=== PATIENT | male | born 1975 | race Two or more races ===

== ENCOUNTER 2021-12-03 01:50 | Emergency (ER) | payer OTHER ==
[2021-12-03 02:42] VITALS: BP 121/82; PULSE 69; RESP 20; TEMP 98.6; BMI 27.2
[2021-12-03] MEDS ORDERED: ACETAMINOPHEN 1000 MG/100 ML BAG IVPB ONE (02:46)
[2021-12-03] MEDS ORDERED: METOCLOPRAMIDE HCL INJECTION 10 MG/2 ML VIAL IVPB ONE (02:46)
[2021-12-03] MEDS ORDERED: SODIUM CHLORIDE 0.9% 500 ML INFUS.BAG IV ONE (02:46)
[2021-12-03] MEDS ORDERED: KETOROLAC TROMETHAMINE 30 MG/1 ML VIAL IVPUSH ONE (02:46)
[2021-12-03] MEDS ORDERED: ACETAMINOPHEN INJECTION 100 ML IVPB ONE (03:41)
[2021-12-03] MEDS ORDERED: METOCLOPRAMIDE HCL INJECTION 10 MG/2 ML VIAL ONE (03:41)
[2021-12-03] MEDS ORDERED: KETOROLAC TROMETHAMINE 30 MG/1 ML VIAL ONE (03:41)
== END 2021-12-03 05:28 | disposition home or self-care (01) ==
LOC: JER 01:50
PROC: 3E0333Z Introduction of Anti-inflammatory into Peripheral Vein, Percutaneous Approach (ICD-10-PCS; principal; 2021-12-03)
PROC: 3E0333Z Introduction of Anti-inflammatory into Peripheral Vein, Percutaneous Approach (ICD-10-PCS; 2021-12-03)
PROC: 3E033GC Introduction of Other Therapeutic Substance into Peripheral Vein, Percutaneous Approach (ICD-10-PCS; 2021-12-03)
DX: R51.9 Headache, unspecified (principal)
CPT/HCPCS: 99284-25

== ENCOUNTER 2022-05-02 09:58 | Observation (INO) | payer OTHER ==
[2022-05-02 10:21] VITALS: BMI 27.8
[2022-05-02 11:22] LABS: BASO % 0.9 % (0-2.0); HEMATOCRIT 45.8 % (35.4-49); HEMOGLOBIN 15.1 GM/dL (11.7-16.9); LYMPH % 45.4 % (8-40); MCH 29.7 pg (25.7-33.7); MCHC 32.9 g/dl (32.0-35.9); MEAN CELL VOLUME 90.3 fl (80-96); NEUT % 44.7 % (42.8-82.8); PLATELET COUNT 327 10^3/uL (134-434); RBC 5.08 M/mm3 (4.00-5.60); RDW 14.1 % (11.9-15.9); WHITE BLOOD COUNT 5.6 K/mm3 (4.0-10.0)
[2022-05-02 11:30] LABS: INR 1.04 (0.83-1.09); PROTHROMBIN TIME (PATIENT) 12.1 SEC (9.7-13.0)
[2022-05-02 11:32] LABS: ACTIVATED PTT 40.6 SECONDS (25.2-36.5)
[2022-05-02 11:47] LABS: CHLORIDE 105 mmol/L (98-107); SODIUM 137 mmol/L (136-145)
[2022-05-02 11:48] LABS: CALCIUM 9.1 mg/dL (8.5-10.1)
[2022-05-02 11:49] LABS: ANION GAP 4 MMOL/L (8-16); CO2 29 mmol/L (21-32)
[2022-05-02 11:50] LABS: BLOOD UREA NITROGEN 16.1 mg/dL (7-18); GLUCOSE,RANDOM 104 mg/dL (74-106)
[2022-05-02 11:52] LABS: CREATININE 0.9 mg/dL (0.55-1.3); SGOT/AST 26 U/L (15-37); SGPT/ALT 45 U/L (13-61)
[2022-05-02 11:54] LABS: CHOLESTEROL 182 mg/dL (50-200); TOT PROT 7.2 g/dl (6.4-8.2); TRIGLYCERIDES 164 mg/dL (0-150)
[2022-05-02 11:55] LABS: BILIRUBIN,TOTAL 0.3 mg/dL (0.2-1); LDL CHOLESTEROL (ONLY SJRH) 108 mg/dL (5-100)
[2022-05-02] MEDS ORDERED: ACETAMINOPHEN 1000 MG/100 ML BAG IVPB ONE (11:55)
[2022-05-02] MEDS ORDERED: SODIUM CHLORIDE 0.9% 500 ML INFUS.BAG IV ONE (11:55)
[2022-05-02] MEDS ORDERED: METOCLOPRAMIDE HCL INJECTION 10 MG/2 ML VIAL IVPUSH ONE (11:55)
[2022-05-02 11:56] LABS: ALK PHOS 100 U/L (45-117); HDL CHOLESTEROL 46 mg/dL (40-60)
[2022-05-02] MEDS ORDERED: METOCLOPRAMIDE HCL INJECTION 10 MG/2 ML VIAL ONE (12:28)
[2022-05-02] MEDS ORDERED: ACETAMINOPHEN INJECTION 100 ML IVPB ONE (12:29)
[2022-05-02] MEDS ORDERED: ASPIRIN 81 MG CHEWABLE TABLETS PO ONE (13:00)
[2022-05-02] MEDS ORDERED: ACETAMINOPHEN 325 MG TABLET (FP) PO PRN (13:35)
[2022-05-02] MEDS ORDERED: ASPIRIN 81 MG CHEWABLE TABLETS ONE (13:48)
[2022-05-02] MEDS ORDERED: TOPIRAMATE 25 MG TABLET PO SCH (22:00)
[2022-05-03 01:20] VITALS: RESP 18
[2022-05-03 08:58] VITALS: PULSE 73
[2022-05-03] MEDS ORDERED: ASPIRIN COATED 81 MG TABLET.EC PO SCH (10:00)
[2022-05-03 14:35] VITALS: BP 131/80; TEMP 98.6
[2022-05-03] MEDS ORDERED: ATORVASTATIN CA 20 MG TABLET (FP) PO SCH (22:00)
== END 2022-05-03 15:19 | disposition home or self-care (01) ==
LOC: JER 09:58 → JERBED 13:17 → UNDOADMOB 13:17 → INTOOBSV 13:17 → JERBED 13:33 → J4S 16:39
PROVIDERS: ADMIT Internal Medicine; ATTEND Internal Medicine
PROC: 3E033NZ Introduction of Analgesics, Hypnotics, Sedatives into Peripheral Vein, Percutaneous Approach (ICD-10-PCS; principal; 2022-05-02)
PROC: 3E033GC Introduction of Other Therapeutic Substance into Peripheral Vein, Percutaneous Approach (ICD-10-PCS; 2022-05-02)
PROC: 3E0337Z Introduction of Electrolytic and Water Balance Substance into Peripheral Vein, Percutaneous Approach (ICD-10-PCS; 2022-05-02)
DX: G43.909 Migraine, unspecified, not intractable, without status migrainosus (principal); R20.0 Anesthesia of skin; Z87.891 Personal history of nicotine dependence; E78.5 Hyperlipidemia, unspecified; R29.818 Other symptoms and signs involving the nervous system
CPT/HCPCS: 0241U-QW; 36415; 70450-TC; 70551-TC; 71045-TC-FY; 80053; 80061; 82550; 82553; 83036; 84484; 85025; 85610; 85730; 93005; 93010; 96361; 96374; 96375; 99285-25; G0378

== ENCOUNTER 2023-06-19 04:26 | Day surgery (SDC) | payer OTHER ==
[2023-06-16 12:14] VITALS: BMI 28.3
[2023-06-19 13:49] VITALS: RESP 18
[2023-06-19] MEDS ORDERED: FENTANYL CITRATE/PF 50 MCG/ML VIAL ONE (16:07)
[2023-06-19] MEDS ORDERED: MIDAZOLAM HCL 2 MG/2 ML SINGLE DOSE VIAL ONE ×2 (16:07→16:21)
[2023-06-19 19:25] VITALS: BP 130/77; PULSE 66; TEMP 98.2
== END 2023-06-19 17:45 | disposition home or self-care (01) ==
LOC: JASU-SURG 04:26
PROVIDERS: ATTEND Urology
PROC: 0TF3XZZ Fragmentation in Right Kidney Pelvis, External Approach (ICD-10-PCS; principal; 2023-06-19 15:30)
DX: N20.0 Calculus of kidney (principal)

== ENCOUNTER 2023-06-28 11:27 | Emergency (ER) | payer OTHER ==
[2023-06-28 11:44] VITALS: TEMP 97.4; BMI 28.4
[2023-06-28] MEDS ORDERED: KETOROLAC TROMETHAMINE 15 MG/ML VIAL ONE (12:42)
[2023-06-28] MEDS: SODIUM CHLORIDE 1,000 ML IV STA (12:50)
[2023-06-28] MEDS: KETOROLAC TROMETHAMINE 15 MG/ML VIAL IVPUSH ONE (12:51)
[2023-06-28 12:58] LABS: BASO % 0.7 % (0-2.0); EOS % 2.6 % (0-4.5); HEMATOCRIT 46.5 % (35.4-49); HEMOGLOBIN 14.9 GM/dL (11.7-16.9); LYMPH % 52.3 % (8-40); MCH 28.9 pg (25.7-33.7); MCHC 32.1 g/dl (32.0-35.9); MEAN PLT VOLUME 8.3 fl (7.5-11.1); MONO % 8.7 % (3.8-10.2); NEUT % 35.7 % (42.8-82.8); PLATELET COUNT 325 10^3/uL (134-434); RBC 5.17 M/mm3 (4.00-5.60); RDW 14.4 % (11.9-15.9)
[2023-06-28 13:13] LABS: POTASSIUM 4.2 mmol/L (3.5-5.1)
[2023-06-28 13:15] LABS: BLOOD UREA NITROGEN 11.2 mg/dL (7-18); CALCIUM 8.8 mg/dL (8.5-10.1)
[2023-06-28 13:19] LABS: CREATININE 1.1 mg/dL (0.55-1.3)
[2023-06-28 13:20] LABS: BILIRUBIN,TOTAL 0.3 mg/dL (0.2-1); TOT PROT 6.8 g/dl (6.4-8.2)
[2023-06-28 13:38] LABS: EPI CELLS 13 /uL (0-25.1); HYALINE CASTS 15 /uL (0-3.1); URINE APPEARANCE CLOUDY; URINE BACTERIA 3 /uL (0-1359); URINE BILIRUBIN NEGATIVE (NEGATIVE); URINE COLOR YELLOW; URINE GLUCOSE (UA) NEGATIVE (NEGATIVE); URINE KETONE NEGATIVE (NEGATIVE); URINE LEUK ESTERASE NEGATIVE (NEGATIVE); URINE NITRITE NEGATIVE (NEGATIVE); URINE PROTEIN NEGATIVE (NEGATIVE); URINE RBC 157 /uL (0-23.9); URINE UROBILINOGEN 0.2 mg/dL (0.2-1.0); URINE WBC 2 /uL (0-25.8)
[2023-06-28 15:43] VITALS: BP 124/83; PULSE 80; RESP 18
== END 2023-06-28 15:43 | disposition home or self-care (01) ==
LOC: JER 11:27
PROC: 3E0333Z Introduction of Anti-inflammatory into Peripheral Vein, Percutaneous Approach (ICD-10-PCS; principal; 2023-06-28)
PROC: 3E0337Z Introduction of Electrolytic and Water Balance Substance into Peripheral Vein, Percutaneous Approach (ICD-10-PCS; 2023-06-28)
DX: R10.9 Unspecified abdominal pain (principal); N20.0 Calculus of kidney
CPT/HCPCS: 36415; 74176-TC; 80053; 81003; 85025; 87086; 99284-25